=== PATIENT | male | born 1990 | race Caucasian/White ===

== ENCOUNTER → 2017-06-09 08:33 | Outpatient (CLI) | payer OTHER, SELFPAY ==
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
== END ==
LOC: MTLAB 08:37 → HPRAD 08:41
PROVIDERS: Family Provider Family Medicine; PCP Family Medicine; Visit Provider Family Medicine
DX: S93.402A Sprain of unspecified ligament of left ankle, initial encounter (principal); X58.XXXA Exposure to other specified factors, initial encounter
CPT/HCPCS: 73610

== ENCOUNTER 2017-08-11 17:00 | Outpatient (RCR) | payer OTHER, SELFPAY ==
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
--- NOTE | 2017-08-11 17:40 | HP.PTDCSUM_ITS ---
HP - PT D/C Summary It has been my pleasure to treat ELSY KIRKPATRICK under orders from Richard Long MD, for the diagnosis of Chronic L ankle sprain for a total of 7 visit (s). Discharge Date: 08/11/17 Please see the following information for a summary of their discharge status. - Subjective Subjective: Last time pt had pain was a little yesterday running around the bases. A litte soreness today.... Color band at home is blue. Pt reports that he has been doing his exercises at least everyother day. - Pain L ankle pain Pain Intensity (Out of 10): 0 - Overall Improvement % Improvement: 75 - Objective Objective/Function: L ankle DF 11 degrees. Pt is able to do ladder srills with 2 foot hop and L foot single leg hop without pain. Pt is able to SLS without any instability or LOB on the L. ISSued black/purple t-band and pt was able to do [address]-band without any issues or problems. - Goals Goal 1:: I HEP Goal Progress: Goal Met Goal 2:: Increase L ankle AROM to 10 DF Goal Progress: Goal Met Goal 3:: Be able to SLS with no visable signs of instability Goal Progress: Goal Met Goal 4:: Be able to complete a work day without having L ankle pain Goal Progress: Goal Met Goal 5:: Be able to do jumping jacks or jump rope without pain Goal Progress: Goal Met - Plan Plan: DC PT to HEP - D/C Information Discharge Comments: DC PT to HEP If there are questions or concerns regarding this patient's physical therapy, please feel free to call me at [phone]. Thank you for the referral of this patient. Sincerely, Tammie Freeman
== END 2017-08-11 19:00 | disposition home or self-care (01) ==
LOC: PT 17:00
PROVIDERS: Family Provider Family Medicine; PCP Family Medicine; Visit Provider Family Medicine
DX: S93.402D Sprain of unspecified ligament of left ankle, subsequent encounter (principal)
CPT/HCPCS: 97110; 97161; 97530

== ENCOUNTER → 2020-10-27 09:17 | Outpatient (CLI) | payer SELFPAY ==
[2020-10-27 10:20] LABS: Absolute Lymphocyte Count 1.08 X10^3/uL (0.83-4.51); Absolute Neutrophil Count 2.1 X10^3/uL (2.0-7.7); Basophil# 0.01 X10^3/uL; Basophil% 0.3 % (0-1); Hematocrit 42.9 % (40-54); Hemoglobin 14.7 g/dL (13.0-16.5); Lymphocyte # 1.08 X10^3/ul (0.83-4.51); Lymphocyte % 29.8 % (19-41); Mean Corp Hgb Conc 34.3 g/dL (32-36); Mean Corpuscular Hgb 29.8 pg (27.0-32.0); Mean Corpuscular Volume 86.8 fL (80-94); Mean Platelet Vol. 9.8 fl (6.2-12.0); Monocyte# 0.48 X10^3/uL; Monocyte% 13.2 % (0-10); NRBC Flagged by Analyzer 0 % (0-5); Neutrophil # 2.05 X10^3/uL (2.7-7.7); Neutrophil % 56.4 % (47-70); Platelet Count 107 K/mm3 (150-450); RBC Distribution Width CV 12.3 % (11.6-14.6); RBC Distribution Width SD 38.9 fl (35.1-43.9); Red Blood Count 4.94 M/mm3 (4.6-6.2); White Blood Count 3.6 K/mm3 (4.4-11.0)
[2020-10-27 10:41] LABS: ALB/GLOB Ratio 1.1 RATIO (0.9-2.4); AST(SGOT) 26 U/L (15-37); Alanine Aminotransfer ALT/SGPT 39 U/L (16-61); Alkaline Phosphatase 66 U/L (45-117); Anion Gap 2 (5-15); BUN 18 mg/dL (7-18); BUN/Creat Ratio 16.7 RATIO (10-20); CRP 7.83 mg/L (0.0-3.0); Calcium,Total 8.8 mg/dL (8.5-10.1); Chloride 105 mmol/L (98-107); Creatinine, Serum 1.08 mg/dL (0.70-1.30); EST Glomerular Filtration Rate 84 mL/min (>60); Est Glom Filt Rate - Afr Amer 102 mL/min (>60); Globulin 3.5 g/dL (2.2-4.2); Glucose 92 mg/dL (74-106); Protein, Total 7.5 g/dL (6.4-8.2); Sodium Level 137 mmol/L (136-145)
[2020-10-29 16:26] LABS: ANTINUCLEAR ANTIBODIES DIRECT Negative (Negative)
== END ==
PROVIDERS: PCP Family Medicine; Referring Provider Family Medicine; Visit Provider Family Medicine
DX: M02.30 Reiter's disease, unspecified site (principal)
CPT/HCPCS: 36415; 80053; 85025; 86038; 86140

== ENCOUNTER → 2020-10-29 | Outpatient (CLI) | payer MEDICARE, SELFPAY | END | disposition home or self-care (01) | PROVIDERS: PCP Family Medicine; Visit Provider Family Medicine | DX: Z20.822 Contact with and (suspected) exposure to COVID-19 (principal) | CPT/HCPCS: 87635; U0005; U0003 ==

== ENCOUNTER → 2022-10-22 | Outpatient (CLI) | payer SELFPAY ==
--- NOTE | 2022-10-22 16:55 | RAD_ITS ---
INDICATION: INJURY EXAMINATION/TECHNIQUE: X-RAY - RIGHT HAND XR Fingers 3 VIEWS COMPARISON: None. FINDINGS: 3 views of the fourth digit of the right hand were obtained. No acute fracture is identified. No dislocation. RAD/Finger(s) Min 2 Views IMPRESSION: No acute fracture identified. Electronically Signed: Tunde Jarquin MD at 1:01 EDT ,
== END | disposition home or self-care (01) ==
PROVIDERS: PCP Family Medicine; Referring Provider Family Medicine; Visit Provider Family Medicine
DX: S69.91XA Unspecified injury of right wrist, hand and finger(s), initial encounter (principal)
CPT/HCPCS: 73140